=== PATIENT | male | born 1985 | race Caucasian/White ===

== ENCOUNTER 2022-09-02 18:26 | Emergency (ER) | payer OTHER, SELFPAY ==
[2022-09-02 18:34] VITALS: BP 156/94; PULSE 112; RESP 18; TEMP 37.8; O2SAT 100
--- NOTE | 2022-09-02 18:44 | ED.URI ---
HPI - URI/Sore Throat General Chief Complaint: Upper Respiratory Infection Stated Complaint: Ear/Nose/ Throat Time Seen by Provider: 09/02/22 18:44 Source: patient and RN notes reviewed Mode of arrival: ambulatory Limitations: no limitations History of Present Illness HPI Narrative: 36-year-old male presented for complaint headache, body aches, sore throat, cough, fever/chills. Endorses bilateral ear pressure. Onset 5 days. He denies sick contacts. He has been taken ibuprofen for symptoms. Denies shortness of breath, wheezing, nausea, vomiting, diarrhea. Reports history of HTN, does not take medication for it. Current smoker 1PPD. MD elicited complaint: cough Related Data Allergies Allergy/AdvReac Type Severity Reaction Status Date / Time No Known Allergies Allergy Verified 09/02/22 18:34 Review of Systems Review of Systems: CONSTITUTIONAL: Endorses malaise, sweats, fever EYES: Denies visual changes, redness, or discharge ENT: Reports rhinorrhea, otalgia, sore throat CARDIOVASCULAR: Denies chest pain, palpitations, edema RESPIRATORY: Reports cough Denies dyspnea GASTROINTESTINAL: Denies abdominal pain, nausea, vomiting, diarrhea SKIN: Denies rash or itching MUSCULOSKELETAL: Endorses myalgia PMFSH Past Medical History Medical History (Updated 09/02/22 @ 19:25 by Evelin Patiño, AMY) Hypertension Exam Narrative: GENERAL: Ill-appearing, nontoxic EYES: conjunctivae clear ENT: Mucous membranes moist. TM pearly pickens with dull light reflex bilaterally; no tragal tenderness. Oropharynx erythematous without lesions or exudate, no drooling, no hoarseness, no trismus, uvula midline. No tripod positioning, muffled voice, soft palate or pharyngeal wall bulging NECK: Supple. Bilateral anterior cervical lymphadenopathy CHEST: Clear to auscultation, breath sounds equal. speaks in full sentences. HEART: Regular rate and rhythm. No murmur heard. SKIN: Warm, dry, no rash. NEURO: Alert and oriented x3. Course Course Emergency Course: Patient is aware of diagnosis, understands and agrees to treatment plan. Anticipatory guidance given. Patient agrees to follow-up as directed and is aware of reasons to seek care at the emergency department. Portions of this record may have been created with voice recognition software Level of Care: Express Care Visit Vital Signs Vital signs: Vital Signs Temperature 100.0 F H 09/02/22 18:34 Pulse Rate 112 H 09/02/22 18:34 Respiratory Rate 18 09/02/22 18:34 Blood Pressure 156/94 H 09/02/22 18:34 Pulse Oximetry 100 09/02/22 18:34 Oxygen Delivery Room Air 09/02/22 18:34 Temperature 100.0 F H 09/02/22 18:34 Pulse Rate 112 H 09/02/22 18:34 Respiratory Rate 18 09/02/22 18:34 Blood Pressure 156/94 H 09/02/22 18:34 Pulse Oximetry 100 09/02/22 18:34 Oxygen Delivery Room Air 09/02/22 18:34 reviewed MDM - URI/Sore Throat MDM Narrative Medical decision making narrative: Results of COVID, flu, and strep reviewed with patient. Will treat for strep based on PE and symptoms present for 5 days. Advised supportive measures and signs/symptoms to go to the ER. Pt is appropriate for outpt treatment and f/u. Differential Diagnosis Differential diagnosis: Likely upper respiratory infection, sinusitis and viral infection Lab Data Labs: Lab Results 09/02/22 Range/Units 18:46 POC SARS CoV-2 Ag Negative (Negative) Influenza A Screen Negative Reference Range: Negative Influenza B Screen Negative Reference Range: Negative Strep Screen Presumptive Negative *(Reference Range: Negative)* Discharge Plan Discharge Clinical Impression: Pharyngitis Qualifiers: Pharyngitis/tonsillitis etiology: unspecified etiology Qualified Code(s): J02.9 - Acute pharyngitis, unspecif
== END 2022-09-02 19:29 | disposition home or self-care (01) ==
PROVIDERS: Emergency Provider Nurse Practitioner Family
DX: J02.9 Acute pharyngitis, unspecified (principal); Z20.822 Contact with and (suspected) exposure to COVID-19; I10 Essential (primary) hypertension
CPT/HCPCS: 87081; 87426; 87804; 87880; 99203; C9803; G0463